=== PATIENT | female | born 1965 | race Caucasian/White ===

== ENCOUNTER 2017-09-21 06:40 | Day surgery (SDC) | payer OTHER ==
[2017-09-21] MEDS ORDERED: Lactated Ringer's 500 ML IV ONE ×2 (08:51)
--- NOTE | 2017-09-21 08:51 | CP.SDSHP ---
Same Day Surgery H & P - History Proposed Procedure: colonoscopy Pre-Op Diagnosis: screening - Previous Medical/Surgical History Cardiac: Hypertension - Allergies Allergies: Allergies crab Allergy (Verified 09/21/17 07:19) ITCHING tramadol Allergy (Verified 09/21/17 07:44) ITCHING SEASONAL Allergy (Uncoded 09/21/17 07:16) CONGESTION - Physical Exam General Appearance: NAD Vital Signs: Vital Signs 09/21/17 09/21/17 07:10 07:49 Temperature 97.3 F L 97.3 F L Pulse Rate 64 64 Respiratory 19 19 Rate Blood Pressure 97/62 L 97/62 L O2 Sat by Pulse 98 98 Oximetry Mental Status: Alert & Oriented x3 Neuro: WNL Heart: WNL Lungs: WNL GI: WNL - {Optional Preform as Required} Abdomen: WNL - Impression Pt. Evaluated Today:Candidate for Anesthesia & Procedure: Yes - Date & Time Date: 09/21/17 Time: 08:51 Short Stay Discharge - Short Stay Discharge Admitting Diagnosis/Reason for Visit: TER FOR SCREENING FOR MALIGNANT NEOPLASM OF COLON Disposition: HOME/ ROUTINE
[2017-09-21] MEDS ORDERED: Propofol 10 mg/ml Inj (20 ML) ONE ×2 (08:53→09:07)
[2017-09-21 08:56] VITALS: O2SAT 100
[2017-09-21 09:46] VITALS: TEMP 98.7
[2017-09-21 12:59] VITALS: RESP 14
[2017-09-21 13:01] VITALS: BP 105/56; PULSE 61
== END 2017-09-21 10:35 | disposition home or self-care (01) ==
LOC: C.ENDO 06:40
PROVIDERS: ATTEND Internal Medicine Gastroenterology
DX: Z12.11 Encounter for screening for malignant neoplasm of colon (principal); I10 Essential (primary) hypertension; K64.1 Second degree hemorrhoids
CPT/HCPCS: 45378; 84703; J2001; J2704; J7120